=== PATIENT | male | born 1955 | race Two or more races ===

== ENCOUNTER 2021-12-28 20:01 | Emergency (ER) | payer MEDICARE, OTHER ==
[~2021-12-28] VITALS: Ht 170.2 cm; Wt 72.6 kg
[2021-12-28 20:18] VITALS: BP 132/99
--- NOTE | 2021-12-28 22:06 | NUR ---
CALLED PATIENT TO ASSIGN HIM A BED. APTIENT LEFT WITHOUT BEING SEEN BY A DOCTOR
== END 2021-12-28 23:07 | disposition left against medical advice (07) ==
LOC: ER 20:05
DX: Z53.21 Procedure and treatment not carried out due to patient leaving prior to being seen by health care provider (principal)